=== PATIENT | male | born 1960 | race Caucasian/White ===

== ENCOUNTER 2020-08-13 11:34 | Emergency (ER) | payer OTHER, SELFPAY ==
[2020-08-13 11:45] VITALS: BP 160/98; PULSE 80; RESP 16; TEMP 37.1; O2SAT 97
[2020-08-13 11:54] VITALS: BP 160/98; PULSE 80; RESP 16; TEMP 37.1; O2SAT 97
--- NOTE | 2020-08-13 12:17 | ED.SKABFB ---
HPI - Skin/Abscess/Foreign Bdy General Chief complaint: Skin/Abscess/Foreign Body Stated complaint: Lump on Neck Time Seen by Provider: 08/13/20 12:01 Source: patient and RN notes reviewed Mode of arrival: ambulatory Limitations: no limitations History of Present Illness HPI narrative: Patient presents today complaining of an area to the right posterior neck that is red. He is concerned about an MRSA infection. He had his first MRSA infection in May where he was hospitalized for 10 days and taken to the OR 5 times in that course of his stay for debridement for an area on his left buttock. This current area on his neck has been present for 3 days and started out looking like a pimple. His popped it with clear fluid resulting. He has not been on antibiotics since May. MD complaint: abscess/boil Related Data Home Medications Medication Instructions Recorded Confirmed apixaban [Eliquis] 5 mg PO DAILY 08/13/20 08/13/20 diltiazem HCl 60 mg PO DAILY 08/13/20 08/13/20 gabapentin 300 mg PO TID 08/13/20 08/13/20 Allergies Allergy/AdvReac Type Severity Reaction Status Date / Time No Known Allergies Allergy Verified 08/13/20 12:02 Review of Systems Review of Systems: Narrative: CONSTITUTIONAL: Denies body aches, fever, chills, or sweats. EYES: Denies visual changes, redness, or discharge. ENT: Denies rhinorrhea, congestion, sore throat, or otalgia. CARDIOVASCULAR: Denies chest pain, palpitations, or edema. RESPIRATORY: Denies cough or dyspnea. GASTROINTESTINAL: Denies abdominal pain, nausea, vomiting, or diarrhea. GENITOURINARY: Denies dysuria or hematuria. SKIN: Denies rash, itching. + Possible abscess to posterior neck MUSCULOSKELETAL: Denies back pain, joint pain, or myalgia. NEUROLOGIC: Denies headache, numbness, tingling, or weakness. PSYCH: Denies depression or anxiety. [facility] Past Medical History Medical History (Updated 08/13/20 @ 12:27 by Deborah England, [facility], ) A-fib Diabetes History of MRSA infection Family History Family History (Updated 05/09/18 @ 13:47 by DOCTOR UNKNOWN) Other Diabetes mellitus Social History Social History (Updated 12/12/20 @ 13:20 by Deborah England, [employer], ) Smoking status: Former smoker Smoking end date: 09/02/96 Alcohol intake: current Alcohol use details: 5 beers every night before bed to help him sleep. Comments At time of signature, I have reviewed and agree with nursing past medical, surgical, social and family history unless otherwise noted. Please see nursing chart for further information. There is no relevant family history pertinent to the presenting complaint Exam Narrative: Exam Narrative: GENERAL: Well-appearing, well-nourished, and in no acute distress. HEAD: Normocephalic, atraumatic. EYES: EOMI. No redness or drainage. Conjunctivae normal. ENT: Mucous membranes pink and moist. NECK: Normal AROM. Supple. No lymphadenopathy. 1.5cm area of erythema and mild induration to the right posterior neck with scab in the center. CHEST: No respiratory distress. EXTREMITIES: Normal range of motion. No edema. SKIN: Warm, dry, no rash. Capillary refill normal. Normal skin turgor. NEURO: No focal deficits. Alert and oriented x3. Gait steady. PSYCH: Normal affect. No signs of depression or anxiety. Course Vital Signs Vital signs: Vital Signs Temperature 98.7 F 08/13/20 11:45 Pulse Rate 80 08/13/20 11:45 Respiratory Rate 16 08/13/20 11:45 Blood Pressure 160/98 H 08/13/20 11:45 Pulse Oximetry 97 08/13/20 11:45 Temperature 98.7 F 08/13/20 11:54 Pulse Rate 80 08/13/20 11:54 Respiratory Rate 16 08/13/20 11:54 Blood Pressure 160/98 H 08/13/20 11:54 Pulse Oximetry 97 08/13/20 11:54 Reviewed. Pt has been instructed to follow up with his PCP regarding his elevated blood pressure today. Procedures Abscess I/D other: Date of Incision: 08/13/20 Time of Incision: 12:24
== END 2020-08-13 12:29 | disposition home or self-care (01) ==
PROVIDERS: Emergency Provider Nurse Practitioner
DX: L02.11 Cutaneous abscess of neck (principal); Z87.891 Personal history of nicotine dependence; I48.91 Unspecified atrial fibrillation; E11.9 Type 2 diabetes mellitus without complications; Z86.14 Personal history of Methicillin resistant Staphylococcus aureus infection
CPT/HCPCS: 99213; G0463

== ENCOUNTER 2020-08-22 16:05 | Emergency (ER) | payer OTHER, SELFPAY ==
--- NOTE | 2020-08-22 16:11 | ED.WOUNDLAC ---
HPI - Wound/Laceration General Chief Complaint: Wound/Laceration Stated Complaint: Abscess on Neck Time Seen by Provider: 08/22/20 16:19 Source: patient and RN notes reviewed Mode of arrival: ambulatory Limitations: no limitations History of Present Illness HPI narrative: 60-year-old male presents for follow-up from a neck abscess. Reports 9 days ago he was seen here and had a neck abscess drained. Reports he has been taking antibiotics as directed, has several days left. Reports he is slightly concerned because he still feels a bump in the area. He denies any pain, drainage, tenderness. He denies fever, malaise. Related Data Home Medications Medication Instructions Recorded Confirmed apixaban [Eliquis] 5 mg PO DAILY 08/13/20 08/13/20 diltiazem HCl 60 mg PO DAILY 08/13/20 08/13/20 gabapentin 300 mg PO TID 08/13/20 08/13/20 aspirin 08/22/20 ezetimibe mg 08/22/20 fenofibrate mg 08/22/20 insulin lispro [Humalog KwikPen unit SUBCUT 08/22/20 Insulin] losartan 08/22/20 pravastatin 08/22/20 Allergies Allergy/AdvReac Type Severity Reaction Status Date / Time No Known Allergies Allergy Verified 08/13/20 12:02 Review of Systems Review of Systems: Narrative: CONSTITUTIONAL: Denies malaise, chills, sweats, or fever. ENT: Denies sore throat. SKIN: Reports resolving abscess on his right neck MUSCULOSKELETAL: Denies myalgia. NEUROLOGIC: Denies numbness, weakness, or headache. All systems reviewed & are unremarkable except as noted in HPI and below PMFSH Past Medical History Medical History (Updated 08/22/20 @ 16:29 by Susan Escobedo NP) A-fib Diabetes History of MRSA infection Family History Family History (Updated 05/09/18 @ 13:47 by DOCTOR UNKNOWN) Other Diabetes mellitus Social History Social History (Updated 08/13/20 @ 13:20 by Deborah England, [facility], ) Smoking status: Former smoker Smoking end date: 09/02/96 Alcohol intake: current Comments At time of signature, agree with nursing past medical, surgical, social and family history. There is no relevant family history pertinent to the presenting complaint Exam Narrative: Exam Narrative: GENERAL: Well-appearing, well-nourished, and in no acute distress. HEAD: Normocephalic, atraumatic. EYES: PERRLA, conjunctivae clear ENT: Mucous membranes moist. NECK: Supple. No lymphadenopathy. No jugular venous distension, thyromegaly, or carotid bruits. Carotids were easily palpable bilaterally. CHEST: No respiratory distress. Speaks in full sentences. HEART: Regular rate and rhythm. SKIN: Warm, dry, no rash. Small palpable nodule to the right sided neck without surrounding erythema, induration, tenderness, no fluctuation, no concern for infection at this time. NEURO: Alert and oriented x3. PSYCH: Normal mood and affect Course Course Emergency Course: Patient is aware of diagnosis, understands and agrees to treatment plan. Anticipatory guidance given. Patient agrees to follow-up as directed and is aware of reasons to seek care at the emergency department. Portions of this record may have been created with voice recognition software Vital Signs Vital signs: Vital Signs Temperature 97.9 F 08/22/20 16:12 Pulse Rate 78 08/22/20 16:12 Respiratory Rate 16 08/22/20 16:12 Blood Pressure 133/80 08/22/20 16:12 Pulse Oximetry 99 08/22/20 16:12 Temperature 97.9 F 08/22/20 16:12 Pulse Rate 78 08/22/20 16:12 Respiratory Rate 16 08/22/20 16:12 Blood Pressure 133/80 08/22/20 16:12 Pulse Oximetry 99 08/22/20 16:12 Reviewed. Patient has history of hypertension MDM - Wound/Laceration MDM Narrative Medical decision making narrative: Exam findings show no acute concerns or changes; patient is non-toxic appearing and is in no distress. Patient is appropriate for outpatient treatment and follow-up. Critical Care Time Critical Care Time Critical Care Time: No Discharge Plan Discharge Clinical Impre
[2020-08-22 16:12] VITALS: BP 133/80; PULSE 78; RESP 16; TEMP 36.6; O2SAT 99
== END 2020-08-22 16:31 | disposition home or self-care (01) ==
PROVIDERS: Emergency Provider Nurse Practitioner
DX: L02.11 Cutaneous abscess of neck (principal); Z87.891 Personal history of nicotine dependence; I48.91 Unspecified atrial fibrillation; E11.9 Type 2 diabetes mellitus without complications; Z86.14 Personal history of Methicillin resistant Staphylococcus aureus infection
CPT/HCPCS: 99211; G0463

== ENCOUNTER 2020-10-01 08:02 | Emergency (ER) | payer OTHER, SELFPAY ==
--- NOTE | 2020-10-01 08:15 | ED.SKABFB ---
HPI - Skin/Abscess/Foreign Bdy General Chief complaint: Skin/Abscess/Foreign Body Stated complaint: boil on buttocks History of Present Illness HPI narrative: 60-year-old male presents to [facility] with complaints of a boil to the left buttock. States that he noticed it this morning. Has a history of abscesses in the same spot which he was admitted to the hospital and on IV antibiotics. Patient reports that he wants to get it caught early so he does not have to go through that again. Related Data Home Medications Medication Instructions Recorded Confirmed apixaban [Eliquis] 1 mg PO BID 10/01/20 10/01/20 diltiazem HCl 1 mg PO BID 10/01/20 10/01/20 glipizide 1 mg PO BID 10/01/20 10/01/20 losartan 1 mg PO DAILY 10/01/20 10/01/20 metformin 1 mg PO BID 10/01/20 10/01/20 Allergies Allergy/AdvReac Type Severity Reaction Status Date / Time No Known Allergies Allergy Verified 10/01/20 08:13 Review of Systems Review of Systems: Narrative: CONSTITUTIONAL: Denies fever, chills, or sweats. EYES: Denies visual changes, redness, or discharge. ENT: Denies rhinorrhea, congestion, sore throat, or otalgia. CARDIOVASCULAR: Denies chest pain, palpitations, or edema. RESPIRATORY: Denies cough or dyspnea. GASTROINTESTINAL: Denies abdominal pain, nausea, vomiting, or diarrhea. GENITOURINARY: Denies dysuria or hematuria. SKIN: Redness to the left buttock. MUSCULOSKELETAL: Denies back pain, joint pain, or myalgia. NEUROLOGIC: Denies headache, numbness, or weakness. PSYCHIATRIC: Denies anxiety or depression. All other systems reviewed are negative, except as documented in HPI. [facility] Past Medical History Medical History (Updated 10/01/20 @ 08:33 by Susan Batista) A-fib Diabetes History of MRSA infection Family History Family History (Updated 05/09/18 @ 13:47 by DOCTOR UNKNOWN) Other Diabetes mellitus Social History Social History (Updated 08/13/20 @ 13:20 by Deborah England, [facility], ) Smoking status: Former smoker Smoking end date: 09/02/96 Alcohol intake: current Gender identity (if verbalized by the patient): Male Comments At the time of my signature, I reviewed and agree with the nursing past medical, surgical, social, and family history. There is no relevant family history pertinent to the patient complaint. Exam Narrative: Exam Narrative: GENERAL: This is a well-nourished, well-developed patient, in no apparent distress. HEAD: normocephalic, atraumatic. EYES: PERRL. Sclera clear/white. Vision is grossly intact. CARDIOVASCULAR: Regular rate and rhythm without murmurs, gallops, or rubs. RESPIRATORY: Clear to auscultation. Breath sounds equal bilaterally. No wheezes, rales, or rhonchi. GASTROINTESTINAL: Abdomen soft, non-tender, nondistended. Bowel sounds are active. No hepato-splenomegaly, or palpable masses. No guarding. SKIN: warm, intact. good texture and turgor. NEURO: awake, alert, and oriented to person, place and time. There were no obvious focal neurologic abnormalities. EXTREMITIES: No clubbing, cyanosis, or edema. No joint tenderness, effusion, or edema noted. BACK: Nontender without deformity or crepitance. No flank tenderness. Skin: Full body images: 1. 2 x 1-1/2 cm area. Firm with no fluctuance. No head to the area. Area cleansed but no drainable site. Course Vital Signs Vital signs: Vital Signs Temperature 97.3 F L 10/01/20 08:21 Pulse Rate 93 10/01/20 08:21 Respiratory Rate 16 10/01/20 08:21 Blood Pressure 157/89 H 10/01/20 08:21 Pulse Oximetry 99 10/01/20 08:21 Temperature 97.3 F L 10/01/20 08:21 Pulse Rate 93 10/01/20 08:21 Respiratory Rate 16 10/01/20 08:21 Blood Pressure 157/89 H 10/01/20 08:21 Pulse Oximetry 99 10/01/20 08:21 Reviewed. Elevated blood pressure. Encourage patient to follow-up with primary care provider MDM - Skin/Abscess/Foreign Bdy Differential Diagnosis Differential diagnosis: Likely abscess of skin or subcutaneo
[2020-10-01 08:21] VITALS: BP 157/89; PULSE 93; RESP 16; TEMP 36.3; O2SAT 99
== END 2020-10-01 08:42 | disposition home or self-care (01) ==
PROVIDERS: Emergency Provider Nurse Practitioner
DX: L03.317 Cellulitis of buttock (principal); Z87.891 Personal history of nicotine dependence; I48.91 Unspecified atrial fibrillation; E11.9 Type 2 diabetes mellitus without complications; Z86.14 Personal history of Methicillin resistant Staphylococcus aureus infection; I10 Essential (primary) hypertension
CPT/HCPCS: 99213; G0463